=== PATIENT | male | born 1940 | race Caucasian/White ===

== ENCOUNTER 2016-05-28 06:34 | Day surgery (SDC) | payer MEDICARE ==
[~2016-05-28] VITALS: Ht 193 cm; Wt 79.5 kg
[2016-05-28] VITALS (9 sets, daily range): BP systolic 86–105; BP diastolic 54–74; PULSE 68–85; RESP 12–16; O2SAT 95–100
[2016-05-28] MEDS: Lactated Ringer's 1,000 ML IV SCH ×2 (05:41→07:50)
[~2016-05-28 06:34] MED LIST: ASPI-973 PO; BACL10TA PO; CELE100C PO; CHOL100045 PO; Clindamycin 900 mg/50 mL D5W IV ONE; Clindamycin 900 mg/50 mL D5W Premix IV ONE; GABA600T2 PO; HYDR28.311 RC; METH850P PO; OMEP20TA24 PO; metroNIDAZOLE 500 mg/100 mL NS Premix IV ONE
[2016-05-28] MEDS ORDERED: Phenylephrine/NS 100 mCg/mL 10 mL Syringe IVPUSH ONE (06:35)
[2016-05-28] MEDS ORDERED: Ondansetron 2 mg/mL 2 mL Inj ONE (06:35)
[2016-05-28] MEDS ORDERED: EPHEDrine/NS 5 mg/mL 5 mL Syringe ONE (06:35)
[2016-05-28] MEDS ORDERED: Glycopyrrolate 0.2 mg/mL 5 mL Inj ONE (06:35)
[2016-05-28] MEDS ORDERED: Neostigmine 1 mg/mL 5 mL Inj ONE (06:35)
[2016-05-28] MEDS ORDERED: Propofol 10,000 mCg/mL 20 mL Inj ONE (06:35)
[2016-05-28] MEDS ORDERED: fentaNYL-PF 50 mCg/mL 2 mL Inj ONE (06:35)
[2016-05-28] MEDS ORDERED: Rocuronium 10 mg/mL 5 mL Inj ONE (06:35)
[2016-05-28] MEDS ORDERED: Dexamethasone 4 mg/mL Inj ONE (06:35)
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
[2016-05-28] MEDS ORDERED: Bupivacaine Liposome 1.3% 20 mL Inj ONE (08:09)
[2016-05-28] MEDS ORDERED: Lactated Ringer's 1,000 ML IV SCH (09:14)
[2016-05-28] MEDS ORDERED: Lactated Ringer's 500 ML IV PRN (09:14)
[2016-05-28] MEDS ORDERED: Ondansetron 2 mg/mL 2 mL Inj IVPUSH PRN (09:15)
[2016-05-28] MEDS ORDERED: Phenylephrine 10,000 mCg/mL Inj IVPUSH PRN (09:15)
[2016-05-28] MEDS ORDERED: EPHEDrine Sulfate 50 mg/mL Inj IVPUSH PRN (09:15)
[2016-05-28] MEDS ORDERED: Atropine 0.4 mg/mL Inj IVPUSH PRN (09:15)
[2016-05-28] MEDS ORDERED: HYDROmorphone 1 mg/mL Inj IVPUSH PRN (09:15)
[2016-05-28] MEDS ORDERED: Labetalol 5 mg/mL 4 mL Inj IV PRN (09:15)
[2016-05-28] MEDS ORDERED: hydrALAZINE 20 mg/mL Inj IVPUSH PRN (09:15)
[2016-05-28] MEDS ORDERED: fentaNYL-PF 50 mCg/mL 2 mL Inj IVPUSH PRN (09:15)
[2016-05-28] MEDS ORDERED: Bupivacaine-MPF 0.5% W/EPI 30 mL Inj INFILTRATE ONE (09:58)
[2016-05-28] MEDS ORDERED: HYDROcodone-APAP 5-325 mg Tablet PO PRN (10:30)
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
--- NOTE | 2016-05-28 13:38 | PCM.ANEP2 ---
Post Anesthesia Evaluation ASA/CMS Post Anesthesia Date of Service: May 28, 2016 VS in Patient's Normal Range?: Yes Resp Stable; Airway Patent?: Yes CV Function & Hydration Stable: Yes Mental Status Recovered?: Yes Pain control Satisfactory?: Yes N/V Control Satisfactory?: Yes Deny Johnson MD May 28, 2016 13:38
--- NOTE | 2016-05-28 13:38 | PCM.ANEP1 ---
Post Anesthesia Phase 1 PACU Phase 1 Assessment Date of Service: May 28, 2016 Vital Signs Vital Signs Date Time Temp Pulse Resp B/P Pulse Ox O2 Delivery O2 Flow Rate FiO2 05/28/16 11:45 77 16 97/71 96 Room Air 05/28/16 11:04 72 15 105/74 95 Room Air 05/28/16 11:00 68 15 97/68 97 Room Air 05/28/16 10:55 36.0 75 12 93/59 96 Room Air 05/28/16 10:45 79 13 95/67 97 Room Air 05/28/16 10:40 77 15 87/60 100 Room Air 05/28/16 10:35 85 16 86/64 100 Simple Mask 8 05/28/16 10:30 36.4 84 13 88/54 100 Simple Mask 8 05/28/16 07:00 36.4 84 16 95/70 98 Room Air Anesthetic Administered: GA Level of Alertness: Awake, talking ASHER's with Equal Strength: No (back to baseline strength) Pain: Yes (left shoulder that was present prior to surgery) Pain Scale Score: 5 Nausea or Vomiting: No Oxygen Delivery: Room Air Lungs: Clear to Auscultation Dermatome Level: Full Sensation (baseline sensation) Deny Johnson MD May 28, 2016 13:38
--- NOTE | 2016-05-29 12:37 | PATH ---
SURGICAL PATHOLOGY Attending Physician:Gutierrez Thompson CASE STATUS: Signed Out PATIENT NAME: COLLINS LONG PID: [id number] : 1940 DATE COLLECTED:05/28/2016 18:11 SPECIMEN: 1: Gastric, Biopsy 2: Hemorrhoids 3: Hemorrhoids 4: Hemorrhoids 5: Hemorrhoids CLINICAL HISTORY: Epigastric Pain Prolapsed Hemorrhoids 1).GASTRIC BODY 2).RIGHT LATERAL HEMORRHOID 3).LEFT LATERAL HEMORRHOID 4).ANTERIOR HEMORRHOID 5).POSTERIOR HEMORRHOID FINAL DIAGNOSIS: 1.GASTRIC BODY BIOPSY: MILD CHRONIC GASTRITIS INVOLVING FUNDIC MUCOSA. Negative for evidence of Helicobacter. Negative for intestinal metaplasia. Negative for dysplasia and malignancy. 2.RIGHT LATERAL HEMORRHOID: INTERNAL AND EXTERNAL HEMORRHOID, NEGATIVE FOR ATYPIA. 3.LEFT LATERAL HEMORRHOID: EXTERNAL HEMORRHOID, NEGATIVE FOR ATYPIA. 4.ANTERIOR HEMORRHOID: EXTERNAL HEMORRHOID, NEGATIVE FOR ATYPIA. 5.POSTERIOR HEMORRHOID: EXTERNAL HEMORRHOID, NEGATIVE FOR ATYPIA. ICD10 CODE K64 GROSS DESCRIPTION: The specimen is received in five formalin filled containers labeled with the patient's name. 1). The specimen is sublabeled "gastric body" and consists of 4 portions of tissue which aggregate to 0.4 x 0.4 x 0.3 CM. The specimen is entirely submitted in cassette 1A. 2). The specimen is sublabeled "right lateral hemorrhoid" and consists of a 4.0 x 2.0 x 1.0 CM portion of tissue. 2 retail account representative sections are submitted in cassette 2A. 3). The specimen is sublabeled "left lateral hemorrhoid" and consists of a 3.0 x 2.0 x 1.0 CM portion of tissue. 2 retail account representative sections are submitted in cassette 3A. 4). The specimen is sublabeled "anterior hemorrhoid" and consists of a 1.0 x 0.8 x 0.6 CM portion of tissue. The specimen is trisected and entirely submitted in cassette 4A. 5). The specimen is sublabeled "posterior hemorrhoid" and consists of a 1.0 x 0.9 x 0.5 CM portion of tissue. The specimen is trisected and entirely submitted in cassette 5A. 05/28/2016 DAC MICRO DESCRIPTION: See diagnosis. ICD-9 CODES: CPT CODES: 1: 25683 2: 83714 3: 73655 4: 86738 5: 08745 Electronically Signed Out Alex Castillo MD [facility] [address], [place] [address] Technical component performed at [facility], [facility] [address], [place], [address]
== END 2016-05-28 23:59 | disposition home or self-care (01) ==
LOC: SAS 06:34
PROVIDERS: ATTEND Surgery
DX: K64.3 Fourth degree hemorrhoids (principal); K64.4 Residual hemorrhoidal skin tags; K29.50 Unspecified chronic gastritis without bleeding; R10.13 Epigastric pain; S30.810A Abrasion of lower back and pelvis, initial encounter; L08.9 Local infection of the skin and subcutaneous tissue, unspecified; G82.50 Quadriplegia, unspecified; R10.12 Left upper quadrant pain; I48.91 Unspecified atrial fibrillation; N13.30 Unspecified hydronephrosis; N31.9 Neuromuscular dysfunction of bladder, unspecified; K21.9 Gastro-esophageal reflux disease without esophagitis; G47.33 Obstructive sleep apnea (adult) (pediatric); L97.829 Non-pressure chronic ulcer of other part of left lower leg with unspecified severity; L97.819 Non-pressure chronic ulcer of other part of right lower leg with unspecified severity; Z86.010 Personal history of colon polyps; Z85.828 Personal history of other malignant neoplasm of skin; Z79.82 Long term (current) use of aspirin; Z93.2 Ileostomy status; Z87.442 Personal history of urinary calculi
CPT/HCPCS: 43239; 46250; 46946; 88304; 88305; J1100; J2370; J2405; J2710; J3010; J3490; J7120